=== PATIENT | female | born 1980 ===

== ENCOUNTER → 2016-06-16 | Outpatient (CLI) | payer OTHER ==
[~2016-06-16] MED LIST: GADAVIST IV PRN
--- NOTE | 2016-06-16 22:15 | DIAGNOSTIC IMAGING REPORT ---
MRI OF THE BRAIN WITHOUT AND WITH IV CONTRAST CLINICAL HISTORY: Left arm numbness. Headaches. Blurred vision in right eye. COMPARISON STUDY: No previous studies for comparison. TECHNIQUE: Utilizing a 1.5 Chantell magnet and dedicated coil, multiplanar, multiecho imaging of the brain was performed pre and postcontrast administration. IV administration of 6 mL of Gadavist contrast was uneventful. Following contrast administration, the patient reported an abnormal feeling within her throat with possible swelling initially. This is considered an allergy to gadolinium based type. However, she was monitored and remained stable. She reported no significant throat swelling or difficulty breathing. FINDINGS: There are no areas of restricted diffusion. No acute intracranial hemorrhage, midline shift or mass effect is present. Ventricular system is normal. Basilar cisterns are patent. There are no extra-axial collections. Flow-voids for the major intracranial vessels are present. No intracranial mass or pathologic enhancement is present. There are a few small white matter T2 hyperintense foci that measure up to 3 mm. Calvarial signal is maintained. IMPRESSION: 1. No acute intracranial findings. 2. No intracranial mass or pathologic enhancement. 3. A few small white matter T2 hyperintense foci which could reflect the sequela of migraine headaches or minimal small vessel disease. The appearance is not typical for multiple sclerosis. Electronically signed by: Damaso Hamilton M.D. 06/16/2016 10:14 PM Dictated Date/Time: 06/16/2016 9:56 PM
== END | disposition home or self-care (01) ==
LOC: C.MRI 20:34
PROVIDERS: ATTEND Obstetrics & Gynecology
DX: H53.8 Other visual disturbances (principal); R20.0 Anesthesia of skin; R27.8 Other lack of coordination; R51 Headache